=== PATIENT | male | born 1935 | race Caucasian/White ===

== ENCOUNTER 2016-12-11 13:55 | Inpatient (IN) | payer OTHER, MEDICARE ==
[~2016-12-11] VITALS: Ht 182.9 cm; Wt 80.7 kg
[2016-12-12 13:30] VITALS: BP 170/69
[2016-12-12] MEDS ORDERED: VITAMIN D31000 UNI2 PO (16:32)
[2016-12-12] MEDS ORDERED: VITAMIN D33000 UNIT PO (16:33)
[2016-12-12] MEDS ORDERED: APRESOLINE10 MG PO (16:35)
[2016-12-12] MEDS ORDERED: NAMZARIC 28 MG1 EACH PO (16:36)
[2016-12-12] MEDS ORDERED: AVAPRO75 MG PO (16:36)
[2016-12-12] MEDS ORDERED: ONDANSETRON4 MG/2 ML IV (16:37)
[2016-12-12] MEDS ORDERED: FLOMAX0.4 MG PO (16:38)
[2016-12-12] MEDS ORDERED: PRAVACHOL40 MG PO (16:38)
[2016-12-12 16:47] VITALS: BP 166/72
[2016-12-12] MEDS ORDERED: APRESOLINE20 MG/ML IV (17:25)
[2016-12-12] MEDS ORDERED: XANAX0.25 MG PO (17:27)
[2016-12-12] MEDS ORDERED: ASPIR 8181 M1 PO (17:28)
[2016-12-12] MEDS ORDERED: DUONEB 2.5-0.5 M3 ML AEROSOL (17:30)
[2016-12-12] MEDS ORDERED: TYLENOL ARTHRI650 MG PO (17:31)
[2016-12-13 00:24] VITALS: BP 149/68
[2016-12-13 04:14] LABS: HEMATOCRIT 42.2 % (38.0-50.0); MCH 29.1 PG (29.0-34.0); MCHC 31.8 G/DL (30.0-36.0); MCV 91.5 FL (86-99); MEAN PLAT.VOLUME 12.2 uM^3 (9.0-12.4); PLATELET COUNT 153 K/uL (156-360); RBC DIS.WIDTH-CV 13.3 % (11.8-14.6); RED BLOOD COUNT 4.61 M/uL (4.00-5.50); WHITE BLOOD COUNT 7.4 K/uL (4.1-10.2)
[2016-12-13 04:25] LABS: CHLORIDE 111 mEq/L (99-109); POTASSIUM 3.8 mEq/L (3.7-5.4); SODIUM 144 mEq/L (136-147)
[2016-12-13 04:27] LABS: GLUCOSE 113 mg/dL (70-99)
[2016-12-13 04:28] LABS: ANION GAP 7 MEQ/L (2-14)
[2016-12-13 04:29] LABS: TOTAL BILIRUBIN 0.9 mg/dL (0.0-1.0)
[2016-12-13 04:30] LABS: ALKALINE PHOSPHATASE 50 IU/L (3-129)
[2016-12-13 04:31] LABS: GFR ESTIMATE (CALCULATED) > 59 mL/min/
[2016-12-13 04:32] LABS: UREA NITROGEN (BUN) 17 mg/dL (9-23)
[2016-12-13 05:26] VITALS: BP 113/58
[2016-12-13 16:11] VITALS: BP 169/60
[2016-12-14 04:48] VITALS: BP 165/74
[2016-12-14 14:58] VITALS: BP 144/63
[2016-12-15 05:03] VITALS: BP 155/67
[2016-12-15 14:40] VITALS: BP 174/83
[2016-12-15 14:43] LABS: HEMATOCRIT 44.6 % (38.0-50.0); MCH 29.2 PG (29.0-34.0); MCHC 31.8 G/DL (30.0-36.0); MCV 91.6 FL (86-99); MEAN PLAT.VOLUME 11.9 uM^3 (9.0-12.4); PLATELET COUNT 164 K/uL (156-360); RBC DIS.WIDTH-SD 43.8 % (39-53); RED BLOOD COUNT 4.87 M/uL (4.00-5.50); WHITE BLOOD COUNT 6.5 K/uL (4.1-10.2)
[2016-12-15 15:07] LABS: ALKALINE PHOSPHATASE 53 IU/L (3-129); ANION GAP 7 MEQ/L (2-14); CHLORIDE 107 MEQ/L (99-109); GFR ESTIMATE (CALCULATED) > 59 mL/min/; GLUCOSE 123 mg/dL (70-99); SAMPLE HEMOLYSIS CHECK 0; SAMPLE ICTERIC CHECK 0; SAMPLE LIPEMIA CHECK 0; SODIUM 142 MEQ/L (136-147); TOTAL BILIRUBIN 0.8 MG/DL (0.0-1.0); UREA NITROGEN (BUN) 19 mg/dL (9-23)
[2016-12-15 15:26] LABS: URIC ACID 6.2 mg/dL (3.1-9.2)
[2016-12-15 16:34] VITALS: BP 160/78
[2016-12-16 05:19] VITALS: BP 130/61
[2016-12-16 14:55] VITALS: BP 139/81
[2016-12-17 05:21] VITALS: BP 145/66
[2016-12-17 15:13] VITALS: BP 170/76
[2016-12-18 05:20] VITALS: BP 138/62
[2016-12-18 15:00] VITALS: BP 164/77
[2016-12-19 04:20] VITALS: BP 147/71
[2016-12-19 15:20] VITALS: BP 143/65
[2016-12-20 05:14] VITALS: BP 133/63
[2016-12-20 05:15] LABS: HEMATOCRIT 40.8 % (38.0-50.0); MCH 28.8 PG (29.0-34.0); MCHC 31.4 G/DL (30.0-36.0); MCV 91.7 FL (86-99); MEAN PLAT.VOLUME 12.7 uM^3 (9.0-12.4); PLATELET COUNT 152 K/uL (156-360); RBC DIS.WIDTH-CV 13.3 % (11.8-14.6); RBC DIS.WIDTH-SD 45.1 % (39-53); RED BLOOD COUNT 4.45 M/uL (4.00-5.50); WHITE BLOOD COUNT 5.6 K/uL (4.1-10.2)
[2016-12-20 05:41] LABS: ALKALINE PHOSPHATASE 49 IU/L (3-129); ANION GAP 5 MEQ/L (2-14); CHLORIDE 110 MEQ/L (99-109); GFR ESTIMATE (CALCULATED) > 59 mL/min/; GLUCOSE 100 mg/dL (70-99); POTASSIUM 3.9 MEQ/L (3.7-5.4); SAMPLE HEMOLYSIS CHECK 0; SAMPLE ICTERIC CHECK 0; SAMPLE LIPEMIA CHECK 0; SODIUM 142 MEQ/L (136-147); TOTAL BILIRUBIN 0.8 MG/DL (0.0-1.0); UREA NITROGEN (BUN) 16 mg/dL (9-23)
[2016-12-20 15:25] VITALS: BP 153/70
[2016-12-21 04:23] VITALS: BP 142/67
[2016-12-21] MEDS ORDERED: FLOMAX0.4 MG PO (10:35)
[2016-12-21] MEDS ORDERED: PRAVACHOL40 MG PO (10:35)
[2016-12-21] MEDS ORDERED: BACTROBAN OINTM22 GM TP (10:35)
[2016-12-21] MEDS ORDERED: AMLODIPINE BES2.5 MG PO (10:35)
[2016-12-21] MEDS ORDERED: AVAPRO75 MG PO (10:35)
[2016-12-21] MEDS ORDERED: ASPIR 8181 M1 PO (10:35)
== END 2016-12-21 15:00 | DRG 945 ==
LOC: 3WEST 13:55
PROVIDERS: Physical Medicine & Rehabilitation Pain Medicine
PROC: F07M7ZZ Manual Therapy Techniques Treatment of Musculoskeletal System - Whole Body (ICD-10-PCS; principal; 2016-12-12)
DX: R53.1 Weakness (principal); I69.954 Hemiplegia and hemiparesis following unspecified cerebrovascular disease affecting left non-dominant side; D69.6 Thrombocytopenia, unspecified; I65.21 Occlusion and stenosis of right carotid artery; I10 Essential (primary) hypertension; E78.5 Hyperlipidemia, unspecified; G30.9 Alzheimer's disease, unspecified; F02.80 Dementia in other diseases classified elsewhere, unspecified severity, without behavioral disturbance, psychotic disturbance, mood disturbance, and anxiety; I25.10 Atherosclerotic heart disease of native coronary artery without angina pectoris; Z95.5 Presence of coronary angioplasty implant and graft; Z85.21 Personal history of malignant neoplasm of larynx; S91.101A Unspecified open wound of right great toe without damage to nail, initial encounter; Z92.3 Personal history of irradiation
CPT/HCPCS: 73630; 80053; 84550; 85027; 92523 GN; 97110 GO; 97112 GO; 97530 GP